=== PATIENT | male | born 1980 | race Caucasian/White ===

== ENCOUNTER 2018-02-24 20:34 | Emergency (ER) | payer OTHER ==
[2018-02-24 20:50] VITALS: BP 125/76; PULSE 97; RESP 18; TEMP 99.1; O2SAT 97
[2018-02-24] MEDS ORDERED: BENZ100 PO (21:31)
[2018-02-24] MEDS ORDERED: AZIT250T3 PO (21:31)
--- NOTE | 2018-02-24 21:33 | PD ---
HPI Chief Complaint: Cold / Flu Symptoms Time Seen by Provider: 21:22 Travel History International Travel<30 days: No Contact w/Intl Traveler<30days: No Traveled to known affect area: No History of Present Illness HPI 37-year-old male medication from [place] presents for evaluation of cough. Symptom onset 5 days ago. Symptoms are moderate, aggravated at night, not alleviated with use of [id number] medications. No relieving factors. Cough is nonproductive. Associate with a sore throat that is worse when coughing. Denies fevers, chills, shortness of breath, nausea or vomiting. No other complaints. PFSH Past Medical History Medical History: Denies Significant Hx Diminished Hearing: No Immunizations Current: Yes Past Surgical History Neurologic Surgery: Yes (2018 SPINAL CORD STIMULATOR INPLANT) Social History Alcohol Use: No Tobacco Use: No Substance Use: No Allergies-Medications (Allergen,Severity, Reaction): Coded Allergies: No Known Allergies (Unverified , 02/24/18) Reported Meds & Prescriptions Reported Meds & Active Scripts Active Tessalon Perles (Benzonatate) 100 Mg Cap 100 Mg PO TID PRN Azithromycin 250 Mg Tab 250 Mg PO DIRECTED Take 2 tabs (500 mg) on day 1 then 1 tab daily x 4 days. Review of Systems Except as stated in HPI: all other systems reviewed are Neg Physical Exam Narrative GENERAL: Well-nourished male in no acute distress SKIN: Warm and dry. HEAD: Atraumatic. Normocephalic. EYES: Pupils equal and round. No scleral icterus. No injection or drainage. ENT: No nasal bleeding or discharge. Mucous membranes pink and moist. NECK: Trachea midline. No JVD. CARDIOVASCULAR: Regular rate and rhythm. No murmur appreciated. RESPIRATORY: No accessory muscle use. Clear to auscultation. Breath sounds equal bilaterally. GASTROINTESTINAL: Abdomen soft, non-tender, nondistended. Hepatic and splenic margins not palpable. Data Data Last Documented VS Vital Signs Date Time Temp Pulse Resp B/P (MAP) Pulse Ox O2 Delivery O2 Flow Rate FiO2 02/24/18 20:50 99.1 97 18 125/76 (92) 97 MDM Medical Decision Making Medical Screen Exam Complete: Yes Emergency Medical Condition: Yes Medical Record Reviewed: Yes Differential Diagnosis Bronchitis, pneumonia, influenza, sinusitis Narrative Course The patient will be treated with azithromycin and Tessalon. Diagnosis Primary Impression: Bronchitis Additional Instructions: Medication as prescribed, stay well hydrated, return for any emergent medical conditions. Med/Other Pt SpecificInfo: Prescription(s) given Scripts Benzonatate (Tessalon Perles) 100 Mg Cap 100 MG PO TID Y for COUGH, #30 CAP 0 Refills Prov: Evens Hinkle MD 02/24/18 Azithromycin (Azithromycin) 250 Mg Tab 250 MG PO DIRECTED for Infection, #6 TAB 0 Refills Take 2 tabs (500 mg) on day 1 then 1 tab daily x 4 days. Prov: Evens Hinkle MD 02/24/18 Disposition: 01 DISCHARGE HOME Condition: Stable Aayush Cunningham Feb 24, 2018 21:33
== END 2018-02-24 21:51 | disposition home or self-care (01) ==
LOC: NEPD 20:34
DX: J40 Bronchitis, not specified as acute or chronic (principal); Z79.899 Other long term (current) drug therapy
CPT/HCPCS: 99283